=== PATIENT | female | born 1965 | race Caucasian/White ===

== ENCOUNTER 2024-03-02 03:45 | Inpatient (IN) | payer MEDICAID ==
[~2024-03-02] VITALS: Ht 162.6 cm; Wt 75.9 kg
[2024-03-02] VITALS (59 sets, daily range): BP systolic 90–131; BP diastolic 56–96; PULSE 92–135; RESP 18–37; TEMP 37.11408–39.0312; O2SAT 98–100
[~2024-03-02 03:45] MED LIST: ASPI-1160 PO; FAMO-135 PO; LIP40 PO
[2024-03-02] MEDS ORDERED: MIDAZOLAM HCL 100 MG in DEXT 5% WATER 80 ML IV ONE (04:00)
[2024-03-02] MEDS: PIPERACILLIN/TAZO 3.375G/50ML 50 ML IV ONE (04:05)
[2024-03-02] MEDS: PROPOFOL 10MG/ML 100ML 100 ML IV ONE (04:05)
[2024-03-02] MEDS: ONDANSETRON HCL 4MG/2ML INJ IV STA (04:06)
[2024-03-02] MEDS: MORPHINE SULFATE 4 MG/ML INJ (FOR IV/IM USE) IV STA (04:06)
[2024-03-02 04:08] LABS: BG BASE EXCESS -9.4 mmol/L (-2.0-3.0); BG DEOXYHEMOGLOBIN 11.4 % (0.0-5.0); BG FRACTION INSPIRED OXYGEN 100; BG HCO3 ACT 22.1 mmol/L (21.0-28.0); BG METHEMOGLOBIN 0.5 % (0.5-1.5); BG OXYGEN SATURATION 88.5 % (94.0-98.0); BG OXYHEMOGLOBIN 88.1 % (94.0-98.0); BG PCO2 75.6 mmHg (32.0-45.0); BG PH 7.083 (7.350-7.450); BG PO2 76.8 mmHg (83.0-108.0); BG SAMPLE SITE RIGHT RADIAL; BG TOTAL HEMOGLOBIN 14.5 g/dL (12.0-16.0); BG VENT MODE VENT - AC
[2024-03-02] MEDS: SODIUM CHLORIDE 0.9% 1000ML BAG (SEPSIS BOLUS) IV ONE (04:10)
[2024-03-02 04:12] LABS: BASOPHILS % 0.3 % (0.0-2.0); DIFFERENTIAL COMMENT 0; EOSINOPHILS % 1.9 % (0.0-5.0); HEMATOCRIT. 39.9 % (36.0-48.0); HEMOGLOBIN. 13.2 g/dL (12.0-16.0); LYMPHOCYTES % 55.9 % (20.0-50.0); MEAN CORPUSCULAR HEMOGLOBIN 30.8 pg (28.0-32.0); MEAN CORPUSCULAR HGB CONC 33.1 g/dL (31.0-37.0); MEAN CORPUSCULAR VOLUME 93.2 fL (81.0-99.0); MEAN PLATELET VOLUME 6.5 fl (7.4-10.4); MONOCYTES % 9.4 % (2.0-8.0); NEUTROPHILS % 32.5 % (40.0-76.0); PLATELET 438 x1000/uL (130-400); RED BLOOD CELL COUNT 4.28 mill/uL (4.2-5.4); RED CELL DISTRIBUTION WIDTH 15.6 % (11.6-14.6); WHITE BLOOD COUNT 20.8 x1000/uL (4.5-11.0)
[2024-03-02] MEDS: ETOMIDATE 2MG/ML 10ML VIAL IV ONE (04:14)
[2024-03-02] MEDS: VECURONIUM BROMIDE 10 MG/VIAL IV ONE (04:14)
[2024-03-02 04:25] LABS: CHLORIDE 106 mEq/L (98-107); POTASSIUM 3.5 mEq/L (3.5-5.1); SODIUM 139 mEq/L (136-145)
[2024-03-02 04:26] LABS: CALCIUM 9.4 mg/dL (8.7-10.4); CARBON DIOXIDE 22 mEq/L (21-32)
[2024-03-02 04:31] LABS: CREATININE 0.9 mg/dL (0.6-1.0); GLUCOSE 270 mg/dL (70-105); UREA NITROGEN BLOOD 10 mg/dL (9-23)
[2024-03-02 04:33] LABS: ALANINE AMINOTRANSFERASE 45 IU/L (10-49); ALBUMIN 4.4 g/dL (3.2-4.8); ASPARTATE AMINOTRANSFERASE 46 IU/L (<34); BILIRUBIN DIRECT 0.3 mg/dL (<=3.0); BILIRUBIN TOTAL 0.9 mg/dL (0.1-1.0); PROTEIN TOTAL 8.3 g/dL (6.0-8.3); TROPONIN I HIGH SENSITIVITY 11 ng/L (3.0-34)
[2024-03-02 04:35] LABS: PROTHROMBIN TIME 10.9 sec (9.6-11.0)
[2024-03-02] MEDS: VANCOMYCIN 1G PREMIX 200 ML IV ONE (05:17)
[2024-03-02 05:24] LABS: LACTIC ACID 6.8 mmol/L (0.4-2.0)
[2024-03-02] MEDS ORDERED: DOCUSATE SODIUM 100MG CAPSULE PO PRN (05:45)
[2024-03-02] MEDS ORDERED: HYDROCODONE/ACETAMINOPHEN 5/325MG TABLET PO PRN (05:45)
[2024-03-02] MEDS ORDERED: MORPHINE SULFATE 2 MG/ML INJ (NOT FOR IM USE) IV PRN (05:45)
[2024-03-02] MEDS ORDERED: ONDANSETRON HCL 4MG/2ML INJ IV PRN (05:45)
[2024-03-02] MEDS ORDERED: MAGNESIUM/ALUMINUM HYDROXIDE/SIMETHICONE 30ML UDC PO PRN (05:45)
[2024-03-02] MEDS ORDERED: NA PHOS,M-B/NA PHOS,DI-BA ENEMA 118ML PR PRN (05:45)
[2024-03-02] MEDS: MIDAZOLAM 100MG/100ML PREMIX IV PRN (06:14)
[2024-03-02] MEDS ORDERED: DEXTROSE 50% WATER 50ML SYRINGE IV PRN (06:15)
[2024-03-02] MEDS: METOPROLOL TARTRATE 50MG TABLET PO SCH (06:15)
[2024-03-02] MEDS: SODIUM CHLORIDE 0.9% 1,000 ML IV SCH (06:35)
[2024-03-02] MEDS: SODIUM BICARBONATE 8.4% 50MEQ/50ML SYR IV NR (06:41)
[2024-03-02 06:55] LABS: TROPONIN I HIGH SENSITIVITY 124 ng/L (3.0-34)
[2024-03-02 07:33] LABS: CREATINE KINASE 80 IU/L (34-145); PHOSPHORUS 4.1 mg/dL (2.5-4.9)
[2024-03-02 07:36] LABS: T4 FREE 1.14 ng/dL (0.89-1.76); THYROID STIMULATING HORMONE 7.23 uIU/mL (0.55-4.78)
[2024-03-02 07:56] LABS: TROPONIN I HIGH SENSITIVITY 184 ng/L (3.0-34)
[2024-03-02] MEDS ORDERED: ETOMIDATE 2MG/ML 10ML VIAL IV ONE (08:00)
[2024-03-02] MEDS: INSULIN LISPRO 100 UNITS/ML SUBCUT SCH (08:20)
[2024-03-02] MEDS: PIPERACILLIN/TAZO 3.375G/50ML 50 ML IV SCH (09:24)
[2024-03-02] MEDS: ENOXAPARIN 40MG/0.4ML SYR SUBCUT SCH (09:24)
[2024-03-02] MEDS: BLOOD SUGAR DIAGNOSTIC STRIP TEST SCH (09:25)
[2024-03-02 10:57] LABS: CLARITY URINE CLEAR (CLEAR); COLOR URINE YELLOW (YELLOW); GLUCOSE URINE 2+ (NEGATIVE); KETONES URINE NEGATIVE (NEGATIVE); LEUKOCYTE ESTERASE URINE NEGATIVE (NEGATIVE); NITRITE URINE NEGATIVE (NEGATIVE); OCCULT BLOOD URINE 1+ (NEGATIVE); PROTEIN URINE TRACE (NEGATIVE); SPECIFIC GRAVITY URINE 1.013 (1.005-1.030); UROBILINOGEN URINE 0.2 E.U./dL (0.2-1.0)
[2024-03-02] MEDS: AZITHROMYCIN 500MG/250ML 250 ML IV SCH (12:52)
[2024-03-02 13:07] LABS: HYALINE CASTS URINE 0-5 /lpf; SQUAMOUS EPITHELIAL CELL URINE RARE /lpf (RARE/1+)
[2024-03-02 13:09] LABS: BACTERIA URINE TRACE; WBC URINE NONE SEEN /hpf (0-2)
[2024-03-02 15:11] LABS: *AMPHETAMINES SCREEN URINE NEGATIVE (NEGATIVE)
[2024-03-02 15:12] LABS: *BARBITURATES SCREEN URINE NEGATIVE (NEGATIVE); *BENZODIAZEPINES SCREEN URINE PRESUMPTIVE POSITIVE (NEGATIVE); *COCAINE SCREEN URINE NEGATIVE (NEGATIVE); CANNABINOID URINE SCREEN NEGATIVE (NEGATIVE); ECSTASY MDMA SCREEN URINE NEGATIVE (NEGATIVE); METHADONE URINE SCREEN NEGATIVE (NEGATIVE); OPIATES URINE SCREEN PRESUMPTIVE POSITIVE (NEGATIVE); PHENCYCLIDINE URINE SCREEN NEGATIVE (NEGATIVE)
[2024-03-02 15:46] LABS: BG BASE EXCESS 2.1 mmol/L (-2.0-3.0); BG CARBOXYHEMOGLOBIN 0.3 % (0.5-1.5); BG DEOXYHEMOGLOBIN 0.9 % (0.0-5.0); BG FRACTION INSPIRED OXYGEN 100; BG HCO3 ACT 24.9 mmol/L (21.0-28.0); BG METHEMOGLOBIN 0.3 % (0.5-1.5); BG OXYGEN SATURATION 99.1 % (94.0-98.0); BG OXYHEMOGLOBIN 98.5 % (94.0-98.0); BG PH 7.495 (7.350-7.450); BG PO2 145.4 mmHg (83.0-108.0); BG SAMPLE SITE RIGHT RADIAL; BG TOTAL HEMOGLOBIN 12.4 g/dL (12.0-16.0); BG VENT MODE VENT - AC
[2024-03-02] MEDS: PROPOFOL 10MG/ML 100ML 100 ML IV PRN (16:16)
[2024-03-02 16:31] LABS: CREATINE KINASE 245 IU/L (34-145)
[2024-03-02 16:33] LABS: TROPONIN I HIGH SENSITIVITY 602 ng/L (3.0-34)
[2024-03-02] MEDS ORDERED: VANCOMYCIN 750MG/150ML (BAXTER) IV SCH (17:00)
[2024-03-02] MEDS: VANCOMYCIN 1.25GM PMX (XELLIA) 250 ML IV SCH (18:40)
[2024-03-02] MEDS: MIDAZOLAM 100MG/100ML PMX 100 ML IV PRN (20:54)
[2024-03-03] VITALS (102 sets, daily range): BP systolic 98–164; BP diastolic 61–88; PULSE 77–114; RESP 20–26; TEMP 36.33624–38.83644; O2SAT 98–100
[2024-03-03 06:12] LABS: CHLORIDE 108 mEq/L (98-107); POTASSIUM 3.3 mEq/L (3.5-5.1); SODIUM 143 mEq/L (136-145)
[2024-03-03 06:15] LABS: BASOPHILS % 0.3 % (0.0-2.0); CALCIUM 8.8 mg/dL (8.7-10.4); CARBON DIOXIDE 27 mEq/L (21-32); EOSINOPHILS % 0.8 % (0.0-5.0); HEMATOCRIT. 34.9 % (36.0-48.0); HEMOGLOBIN. 11.4 g/dL (12.0-16.0); LYMPHOCYTES % 22.4 % (20.0-50.0); MEAN CORPUSCULAR HEMOGLOBIN 29.5 pg (28.0-32.0); MEAN CORPUSCULAR HGB CONC 32.8 g/dL (31.0-37.0); MEAN CORPUSCULAR VOLUME 90.2 fL (81.0-99.0); MEAN PLATELET VOLUME 6.6 fl (7.4-10.4); MONOCYTES % 10.9 % (2.0-8.0); NEUTROPHILS % 65.6 % (40.0-76.0); PLATELET 293 x1000/uL (130-400); RED BLOOD CELL COUNT 3.87 mill/uL (4.2-5.4); RED CELL DISTRIBUTION WIDTH 15.1 % (11.6-14.6); WHITE BLOOD COUNT 13.3 x1000/uL (4.5-11.0)
[2024-03-03 06:20] LABS: GLUCOSE 97 mg/dL (70-105)
[2024-03-03 06:21] LABS: ALANINE AMINOTRANSFERASE 43 IU/L (10-49)
[2024-03-03 06:22] LABS: ALBUMIN 3.4 g/dL (3.2-4.8); ASPARTATE AMINOTRANSFERASE 31 IU/L (<34); PHOSPHORUS 2.9 mg/dL (2.5-4.9)
[2024-03-03 06:23] LABS: BILIRUBIN TOTAL 1.4 mg/dL (0.1-1.0); PROTEIN TOTAL 6.3 g/dL (6.0-8.3)
[2024-03-03 06:49] LABS: CREATININE 0.5 mg/dL (0.6-1.0); UREA NITROGEN BLOOD < 5 mg/dL (9-23)
[2024-03-03 09:14] LABS: TROPONIN I HIGH SENSITIVITY 413 ng/L (3.0-34)
[2024-03-03] MEDS: KCL 20MEQ/100ML PREMIX 100 ML IV SCH (20:15)
[2024-03-03] MEDS: ACETAMINOPHEN 325MG TABLET PO PRN (20:17)
[2024-03-03] MEDS: PROPOFOL 10MG/ML 100ML 100 ML IV PRN (23:49)
[2024-03-04] VITALS (85 sets, daily range): BP systolic 112–171; BP diastolic 61–117; PULSE 69–93; RESP 7–36; TEMP 36.83628–37.94748; O2SAT 98–100
[2024-03-04 03:44] LABS: BASOPHILS % 0.2 % (0.0-2.0); EOSINOPHILS % 3.1 % (0.0-5.0); HEMATOCRIT. 28.8 % (36.0-48.0); HEMOGLOBIN. 9.6 g/dL (12.0-16.0); LYMPHOCYTES % 19.9 % (20.0-50.0); MEAN CORPUSCULAR HEMOGLOBIN 29.6 pg (28.0-32.0); MEAN CORPUSCULAR HGB CONC 33.3 g/dL (31.0-37.0); MEAN CORPUSCULAR VOLUME 89.1 fL (81.0-99.0); MEAN PLATELET VOLUME 6.5 fl (7.4-10.4); MONOCYTES % 9.2 % (2.0-8.0); NEUTROPHILS % 67.6 % (40.0-76.0); PLATELET 269 x1000/uL (130-400); RED BLOOD CELL COUNT 3.23 mill/uL (4.2-5.4); RED CELL DISTRIBUTION WIDTH 15.1 % (11.6-14.6); WHITE BLOOD COUNT 8.3 x1000/uL (4.5-11.0)
[2024-03-04 03:51] LABS: CHLORIDE 113 mEq/L (98-107); POTASSIUM 3.2 mEq/L (3.5-5.1); SODIUM 143 mEq/L (136-145)
[2024-03-04 03:52] LABS: CARBON DIOXIDE 23 mEq/L (21-32)
[2024-03-04 03:53] LABS: CALCIUM 8.5 mg/dL (8.7-10.4)
[2024-03-04 03:57] LABS: CREATININE 0.5 mg/dL (0.6-1.0); GLUCOSE 95 mg/dL (70-105); TRIGLYCERIDE 100 mg/dL (0-150)
[2024-03-04 04:16] LABS: UREA NITROGEN BLOOD < 5 mg/dL (9-23)
[2024-03-04] MEDS ORDERED: NALOXONE HCL 0.4MG/ML VIAL IV PRN (09:00)
[2024-03-04] MEDS: KCL 20MEQ/100ML PREMIX 100 ML IV SCH (10:38)
[2024-03-04] MEDS: DEXMEDETOMIDINE 400 MCG/100 ML 100 ML IV PRN (11:50)
[2024-03-04 11:52] LABS: BG BASE EXCESS -2.8 mmol/L (-2.0-3.0); BG CARBOXYHEMOGLOBIN 0.3 % (0.5-1.5); BG DEOXYHEMOGLOBIN 1.4 % (0.0-5.0); BG FRACTION INSPIRED OXYGEN 40; BG HCO3 ACT 20.8 mmol/L (21.0-28.0); BG METHEMOGLOBIN 0.3 % (0.5-1.5); BG OXYGEN SATURATION 98.6 % (94.0-98.0); BG PCO2 31.7 mmHg (32.0-45.0); BG PH 7.435 (7.350-7.450); BG PO2 124.3 mmHg (83.0-108.0); BG SAMPLE SITE RIGHT RADIAL; BG TOTAL HEMOGLOBIN 9.8 g/dL (12.0-16.0); BG VENT MODE VENT - AC
[2024-03-04 17:13] LABS: BG CARBOXYHEMOGLOBIN 0.3 % (0.5-1.5); BG DEOXYHEMOGLOBIN 2.2 % (0.0-5.0); BG FRACTION INSPIRED OXYGEN 35; BG HCO3 ACT 20.6 mmol/L (21.0-28.0); BG METHEMOGLOBIN 0.3 % (0.5-1.5); BG OXYGEN SATURATION 97.8 % (94.0-98.0); BG OXYHEMOGLOBIN 97.2 % (94.0-98.0); BG PCO2 31.8 mmHg (32.0-45.0); BG PH 7.429 (7.350-7.450); BG PO2 102.3 mmHg (83.0-108.0); BG SAMPLE SITE RIGHT BRACHIAL; BG TOTAL HEMOGLOBIN 10.8 g/dL (12.0-16.0); BG VENT MODE VENT - CPAP
[2024-03-04] MEDS: ATORVASTATIN CALCIUM 40MG TABLET PO SCH (21:10)
[2024-03-05] VITALS (54 sets, daily range): BP systolic 65–190; BP diastolic 52–139; PULSE 78–118; RESP 12–27; TEMP 36.44736–37.72524; O2SAT 94–100
[2024-03-05] MEDS: CLONIDINE 0.1MG TABLET PO PRN (02:21)
[2024-03-05] MEDS: GUAIFENESIN 200MG/10ML SUGAR FREE UDC PO PRN (04:40)
[2024-03-05 05:52] LABS: HEMATOCRIT 28.8 % (36.0-48.0); MEAN CORPUSCULAR HEMOGLOBIN 30.5 pg (28.0-32.0); MEAN CORPUSCULAR HGB CONC 34.7 g/dL (31.0-37.0); PLATELET 315 x1000/uL (130-400); RED BLOOD CELL COUNT 3.27 mill/uL (4.2-5.4); RED CELL DISTRIBUTION WIDTH 14.7 % (11.6-14.6); WHITE BLOOD COUNT 8.6 x1000/uL (4.5-11.0)
[2024-03-05 05:59] LABS: CHLORIDE 111 mEq/L (98-107); POTASSIUM 2.9 mEq/L (3.5-5.1); SODIUM 143 mEq/L (136-145)
[2024-03-05 06:00] LABS: CARBON DIOXIDE 23 mEq/L (21-32)
[2024-03-05 06:01] LABS: CALCIUM 9.1 mg/dL (8.7-10.4)
[2024-03-05 06:05] LABS: CREATININE 0.4 mg/dL (0.6-1.0); GLUCOSE 82 mg/dL (70-105)
[2024-03-05 06:41] LABS: PHOSPHORUS 2.8 mg/dL (2.5-4.9)
[2024-03-05 06:51] LABS: UREA NITROGEN BLOOD < 5 mg/dL (9-23)
[2024-03-05] MEDS: ASPIRIN 81MG TABLET PO SCH (08:16)
[2024-03-05] MEDS: MAGNESIUM 2 G PREMIX 50 ML IV NR (09:01)
[2024-03-05] MEDS: POTASSIUM CHLORIDE 20MEQ/PACKET PO NR (09:02)
[2024-03-05] MEDS: SODIUM CHLORIDE 0.9% 1,000 ML IV SCH (09:45)
[2024-03-05] MEDS: KCL 20MEQ/100ML PREMIX 100 ML IV SCH (11:37)
[2024-03-06] VITALS (35 sets, daily range): BP systolic 87–185; BP diastolic 53–140; PULSE 71–96; RESP 0–28; TEMP 36.3918–37.33632; O2SAT 91–100
[2024-03-06 06:05] LABS: HEMATOCRIT. 30.3 % (36.0-48.0); HEMOGLOBIN. 10.4 g/dL (12.0-16.0); MEAN CORPUSCULAR HEMOGLOBIN 30.7 pg (28.0-32.0); MEAN CORPUSCULAR HGB CONC 34.3 g/dL (31.0-37.0); MEAN CORPUSCULAR VOLUME 89.5 fL (81.0-99.0); RED BLOOD CELL COUNT 3.38 mill/uL (4.2-5.4); RED CELL DISTRIBUTION WIDTH 14.7 % (11.6-14.6)
[2024-03-06 06:26] LABS: PHOSPHORUS 2.9 mg/dL (2.5-4.9)
[2024-03-06 06:55] LABS: DIFFERENTIAL COMMENT 1
[2024-03-06 09:39] LABS: PLATELET ESTIMATE MARKEDLY INCREASED
[2024-03-06] MEDS ORDERED: CEFEPIME 2GM IN DEXT 5% 100ML IV SCH (16:30)
[2024-03-06] MEDS: PIPERACILLIN/TAZO 3.375G/50ML 50 ML IV SCH (17:08)
[2024-03-06] MEDS ORDERED: CEFEPIME 2GM/100ML 100 ML IV SCH (18:00)
[2024-03-06 18:15] LABS: CALCIUM 9.1 mg/dL (8.7-10.4); CARBON DIOXIDE 25 mEq/L (21-32); CHLORIDE 108 mEq/L (98-107); POTASSIUM 3.4 mEq/L (3.5-5.1); SODIUM 140 mEq/L (136-145)
[2024-03-06 18:20] LABS: CREATININE 0.5 mg/dL (0.6-1.0); GLUCOSE 126 mg/dL (70-105); UREA NITROGEN BLOOD 7 mg/dL (9-23)
[2024-03-06 18:22] LABS: PHOSPHORUS 2.6 mg/dL (2.5-4.9)
[2024-03-07] VITALS: BP 142/78; PULSE 90; RESP 17; TEMP 36.6696; O2SAT 99
[2024-03-07 04:00] VITALS: BP 137/76; PULSE 86; RESP 18; TEMP 37.16964; O2SAT 95
[2024-03-07 08:00] VITALS: BP 130/73; PULSE 81; RESP 19; TEMP 37.39188; O2SAT 98
[2024-03-07] MEDS: BUDESONIDE 0.5MG/2ML NEB HHN SCH ×2 (11:47→20:44)
[2024-03-07 12:19] VITALS: BP 127/61; PULSE 76; RESP 18; TEMP 36.55848
[2024-03-07 16:00] VITALS: BP 137/77; PULSE 86; RESP 18; TEMP 36.6696; O2SAT 99
[2024-03-07 20:00] VITALS: BP 134/72; PULSE 93; RESP 19; TEMP 36.16956; O2SAT 99
[2024-03-07] MEDS: GUAIFENESIN/DM 600MG/30MG ER TAB 12HR PO PRN (20:45)
[2024-03-07] MEDS: METOPROLOL TARTRATE 25MG TABLET PO SCH (20:45)
[2024-03-08] VITALS (9 sets, daily range): BP systolic 116–144; BP diastolic 56–82; PULSE 70–91; RESP 17–20; TEMP 35.39172–38.11416; O2SAT 95–100
[2024-03-08] MEDS: IPRATROPIUM/ALBUTEROL 0.5-3(2.5)MG/3ML NEB HHN PRN (08:32)
[2024-03-08] MEDS: ACETAMINOPHEN 325MG TABLET PO PRN (21:06)
[2024-03-09] VITALS: BP 129/55; PULSE 80; RESP 20; TEMP 36.72516; O2SAT 100
[2024-03-09 04:00] VITALS: BP 129/55; PULSE 80; RESP 20; TEMP 37.61412; O2SAT 100
[2024-03-09 08:00] VITALS: BP 149/75; PULSE 90; RESP 18; TEMP 36.50292; O2SAT 98
[2024-03-09 09:27] VITALS: PULSE 86; RESP 18; O2SAT 96
[2024-03-09] MEDS: METOPROLOL TARTRATE 25MG TABLET PO NR (10:15)
[2024-03-09] MEDS ORDERED: GUAI-741 PO (16:54)
[2024-03-09 20:45] VITALS: PULSE 81; RESP 16; O2SAT 97
[2024-03-09 21:07] VITALS: BP 142/71; PULSE 97; TEMP 98.1; O2SAT 98
== END 2024-03-09 22:01 | disposition home or self-care (01) | DRG 720 ==
LOC: ER 03:52 → CVICU 04:39 → EDBEDREQSVC 05:38 → 6WST 03-06 16:44 → 7EST 03-08 18:03
PROVIDERS: ADMIT Internal Medicine; ATTEND Internal Medicine
PROC: 5A1945Z Respiratory Ventilation, 24-96 Consecutive Hours (ICD-10-PCS; principal; 2024-03-02)
PROC: 0BH17EZ Insertion of Endotracheal Airway into Trachea, Via Natural or Artificial Opening (ICD-10-PCS; 2024-03-02)
DX: A41.9 Sepsis, unspecified organism (principal); J96.01 Acute respiratory failure with hypoxia; I21.A1 Myocardial infarction type 2; G93.41 Metabolic encephalopathy; J18.9 Pneumonia, unspecified organism; E87.29 Other acidosis; J96.02 Acute respiratory failure with hypercapnia; I10 Essential (primary) hypertension; I16.1 Hypertensive emergency; E03.9 Hypothyroidism, unspecified; R73.9 Hyperglycemia, unspecified; R65.20 Severe sepsis without septic shock; E83.42 Hypomagnesemia; E87.6 Hypokalemia; E04.9 Nontoxic goiter, unspecified; E78.5 Hyperlipidemia, unspecified
CPT/HCPCS: 31500; 36415; 36600; 71045; 71275; 80048; 80053; 80076; 80202; 80305; 81003; 82375; 82550; 82805; 82962; 83605; 83735; 83880; 84100; 84145; 84439; 84443; 84478; 84481; 84484; 85025; 85027; 85379; 87070; 87804; 92610; 93005; 93306; 93970; 94003; 94640; 99291; J0456; J0692; J1650; J2250; J2270; J2405; J2543; J2704; J3370; J3475; J3480; J3490; J7030; J7060; J7626

== ENCOUNTER 2024-03-12 05:18 | Inpatient (IN) | payer MEDICAID ==
[~2024-03-12] VITALS: Ht 320 cm; Wt 73.0 kg
[2024-03-12] VITALS (7 sets, daily range): BP systolic 131; BP diastolic 67; PULSE 84–150; RESP 18–28; TEMP 37.00296; O2SAT 98–99
[~2024-03-12 05:18] MED LIST changes: +GUAI-741 PO
[2024-03-12] MEDS ORDERED: METHYLPREDNISOLONE SOD SUCC 500 MG in DEXT 5% WATER 100 ML IV ONE (05:45)
[2024-03-12] MEDS: HYDRALAZINE 20MG/ML VIAL IV ONE (05:45)
[2024-03-12] MEDS: PROPOFOL 10MG/ML 100ML 100 ML IV SCH (05:47)
[2024-03-12] MEDS: ALBUTEROL (0.083%) 2.5MG/3ML NEB HHN ONE (06:07)
[2024-03-12 06:14] LABS: HEMATOCRIT. 37.2 % (36.0-48.0); MEAN CORPUSCULAR HEMOGLOBIN 29.6 pg (28.0-32.0); MEAN CORPUSCULAR HGB CONC 32.4 g/dL (31.0-37.0); MEAN CORPUSCULAR VOLUME 91.5 fL (81.0-99.0); MEAN PLATELET VOLUME 6.4 fl (7.4-10.4); PLATELET 673 x1000/uL (130-400); RED BLOOD CELL COUNT 4.07 mill/uL (4.2-5.4); RED CELL DISTRIBUTION WIDTH 15.5 % (11.6-14.6); WHITE BLOOD COUNT 14.8 x1000/uL (4.5-11.0)
[2024-03-12] MEDS: SUCCINYLCHOLINE CHLORIDE 200MG/10ML IV ONE (06:19)
[2024-03-12] MEDS: ETOMIDATE 2MG/ML 10ML VIAL IV ONE ×2 (06:19)
[2024-03-12 06:22] LABS: CHLORIDE 104 mEq/L (98-107); POTASSIUM 4.2 mEq/L (3.5-5.1); SODIUM 139 mEq/L (136-145)
[2024-03-12 06:23] LABS: CALCIUM 9.4 mg/dL (8.7-10.4); CARBON DIOXIDE 24 mEq/L (21-32)
[2024-03-12 06:25] LABS: BG BASE EXCESS -3.9 mmol/L (-2.0-3.0); BG CARBOXYHEMOGLOBIN 0.1 % (0.5-1.5); BG DEOXYHEMOGLOBIN 0.4 % (0.0-5.0); BG FRACTION INSPIRED OXYGEN 100; BG HCO3 ACT 21.4 mmol/L (21.0-28.0); BG METHEMOGLOBIN 0.1 % (0.5-1.5); BG OXYGEN SATURATION 99.6 % (94.0-98.0); BG OXYHEMOGLOBIN 99.4 % (94.0-98.0); BG PCO2 39.9 mmHg (32.0-45.0); BG PH 7.347 (7.350-7.450); BG PO2 348.2 mmHg (83.0-108.0); BG SAMPLE SITE RIGHT RADIAL; BG TOTAL HEMOGLOBIN 12.5 g/dL (12.0-16.0); BG VENT MODE VENT - AC
[2024-03-12 06:28] LABS: CREATININE 0.9 mg/dL (0.6-1.0); GLUCOSE 297 mg/dL (70-105); UREA NITROGEN BLOOD 10 mg/dL (9-23)
[2024-03-12 06:29] LABS: TROPONIN I HIGH SENSITIVITY 16 ng/L (3.0-34)
[2024-03-12 06:30] LABS: ALANINE AMINOTRANSFERASE 18 IU/L (10-49); ALBUMIN 4.2 g/dL (3.2-4.8); ASPARTATE AMINOTRANSFERASE 22 IU/L (<34); BILIRUBIN TOTAL 0.5 mg/dL (0.1-1.0)
[2024-03-12 06:31] LABS: PROTEIN TOTAL 8.1 g/dL (6.0-8.3)
[2024-03-12 06:32] LABS: DIFFERENTIAL COMMENT 1
[2024-03-12 07:36] LABS: ANISOCYTOSIS 1+; PLATELET ESTIMATE INCREASED
[2024-03-12] MEDS: METHYLPREDNISOLONE SOD SUCC 500 MG in DEXT 5% WATER 100 ML IV NR (08:26)
[2024-03-12] MEDS ORDERED: SODIUM CHLORIDE 0.9% 1000ML BAG (SEPSIS BOLUS) IV ONE (08:30)
[2024-03-12] MEDS: SODIUM CHLORIDE 0.9% 2,100 ML IV SCH (08:47)
[2024-03-12] MEDS: LEVOFLOXACIN 750MG PREMIX 150 ML IV NR (08:54)
[2024-03-12 09:08] LABS: LACTIC ACID 2.2 mmol/L (0.4-2.0)
[2024-03-12] MEDS ORDERED: ONDANSETRON HCL 4MG/2ML INJ IV PRN (14:15)
[2024-03-12] MEDS ORDERED: DIPHENHYDRAMINE 50MG/ML VIAL IV PRN (14:15)
[2024-03-12] MEDS ORDERED: DEXTROSE 50% WATER 50ML SYRINGE IV PRN (14:15)
[2024-03-12] MEDS: CEFTRIAXONE 1GM/50ML 50 ML IV SCH (14:48)
[2024-03-12] MEDS: AZITHROMYCIN 500MG/250ML 250 ML IV SCH (15:16)
[2024-03-12] MEDS: IPRATROPIUM/ALBUTEROL 0.5-3(2.5)MG/3ML NEB HHN SCH (16:11)
[2024-03-12] MEDS: BLOOD SUGAR DIAGNOSTIC STRIP TEST SCH (16:45)
[2024-03-12] MEDS: INSULIN LISPRO 100 UNITS/ML SUBCUT SCH (18:04)
[2024-03-12] MEDS: ACETYLCYSTEINE 200MG/ML 20% VIAL 4ML INH SCH (21:23)
[2024-03-12] MEDS: ACETAMINOPHEN 325MG TABLET PO PRN (21:34)
[2024-03-12] MEDS: METHYLPREDNISOLONE SOD SUCC 40MG/ML (ACT-O-VIAL) IV SCH (21:34)
[2024-03-13] VITALS (9 sets, daily range): BP systolic 109–131; BP diastolic 54–80; PULSE 77–113; RESP 16–20; TEMP 36.22512–37.0296; O2SAT 96–100
[2024-03-13 07:06] LABS: CARBON DIOXIDE 24 mEq/L (21-32); CHLORIDE 109 mEq/L (98-107); POTASSIUM 3.5 mEq/L (3.5-5.1); SODIUM 141 mEq/L (136-145)
[2024-03-13 07:07] LABS: CALCIUM 10.1 mg/dL (8.7-10.4)
[2024-03-13 07:12] LABS: GLUCOSE 167 mg/dL (70-105); HEMATOCRIT. 30.5 % (36.0-48.0); HEMOGLOBIN. 10.6 g/dL (12.0-16.0); LYMPHOCYTES % 8.4 % (20.0-50.0); MEAN CORPUSCULAR HEMOGLOBIN 30.7 pg (28.0-32.0); MEAN CORPUSCULAR HGB CONC 34.8 g/dL (31.0-37.0); MEAN CORPUSCULAR VOLUME 88.3 fL (81.0-99.0); MEAN PLATELET VOLUME 6.4 fl (7.4-10.4); MONOCYTES % 4.1 % (2.0-8.0); NEUTROPHILS % 87.5 % (40.0-76.0); PLATELET 463 x1000/uL (130-400); RED BLOOD CELL COUNT 3.46 mill/uL (4.2-5.4); RED CELL DISTRIBUTION WIDTH 15.4 % (11.6-14.6); UREA NITROGEN BLOOD 13 mg/dL (9-23)
[2024-03-13 07:36] LABS: CREATININE 0.5 mg/dL (0.6-1.0)
[2024-03-14] VITALS (10 sets, daily range): BP systolic 105–123; BP diastolic 50–65; PULSE 84–120; RESP 18–20; TEMP 36.50292–36.61404; O2SAT 97–99
[2024-03-14 06:37] LABS: T4 FREE 1.16 ng/dL (0.89-1.76)
[2024-03-14] MEDS: IPRATROPIUM/ALBUTEROL 0.5-3(2.5)MG/3ML NEB HHN PRN (09:42)
[2024-03-15] VITALS (10 sets, daily range): BP systolic 102–129; BP diastolic 48–70; PULSE 70–99; RESP 17–22; TEMP 36.44736–36.89184; O2SAT 97–100
[2024-03-15 07:19] LABS: CARBON DIOXIDE 25 mEq/L (21-32); CHLORIDE 108 mEq/L (98-107); SODIUM 142 mEq/L (136-145)
[2024-03-15 07:21] LABS: CALCIUM 9.7 mg/dL (8.7-10.4)
[2024-03-15 07:25] LABS: CREATININE 0.5 mg/dL (0.6-1.0); GLUCOSE 158 mg/dL (70-105); UREA NITROGEN BLOOD 18 mg/dL (9-23)
[2024-03-15 07:53] LABS: HEMATOCRIT. 28.5 % (36.0-48.0); HEMOGLOBIN. 9.4 g/dL (12.0-16.0); MEAN CORPUSCULAR HEMOGLOBIN 29.4 pg (28.0-32.0); MEAN CORPUSCULAR HGB CONC 33.1 g/dL (31.0-37.0); MEAN CORPUSCULAR VOLUME 88.8 fL (81.0-99.0); MEAN PLATELET VOLUME 6.6 fl (7.4-10.4); PLATELET 463 x1000/uL (130-400); RED BLOOD CELL COUNT 3.21 mill/uL (4.2-5.4); RED CELL DISTRIBUTION WIDTH 15.7 % (11.6-14.6); WHITE BLOOD COUNT 18.8 x1000/uL (4.5-11.0)
[2024-03-15 08:52] LABS: DIFFERENTIAL COMMENT 1
[2024-03-15 23:39] LABS: PLATELET ESTIMATE INCREASED
[2024-03-16] VITALS (60 sets, daily range): BP systolic 112–200; BP diastolic 45–110; PULSE 70–146; RESP 12–27; TEMP 36.50292–37.2252; O2SAT 95–100
[2024-03-16 05:41] LABS: CHLORIDE 108 mEq/L (98-107); POTASSIUM 3.3 mEq/L (3.5-5.1); SODIUM 143 mEq/L (136-145)
[2024-03-16 05:42] LABS: CARBON DIOXIDE 26 mEq/L (21-32)
[2024-03-16 05:43] LABS: CALCIUM 9.5 mg/dL (8.7-10.4)
[2024-03-16 05:47] LABS: CREATININE 0.5 mg/dL (0.6-1.0); GLUCOSE 131 mg/dL (70-105)
[2024-03-16 05:48] LABS: UREA NITROGEN BLOOD 13 mg/dL (9-23)
[2024-03-16] MEDS: METOPROLOL TARTRATE 5MG/5ML VIAL IV NR (06:23)
[2024-03-16] MEDS: PROPOFOL 10MG/ML 100ML 100 ML IV PRN (06:23)
[2024-03-16 07:02] LABS: BASOPHILS % 0.1 % (0.0-2.0); HEMATOCRIT. 29.5 % (36.0-48.0); HEMOGLOBIN. 9.8 g/dL (12.0-16.0); LYMPHOCYTES % 14.5 % (20.0-50.0); MEAN CORPUSCULAR HEMOGLOBIN 29.9 pg (28.0-32.0); MEAN CORPUSCULAR HGB CONC 33.3 g/dL (31.0-37.0); MEAN CORPUSCULAR VOLUME 89.6 fL (81.0-99.0); MEAN PLATELET VOLUME 6.8 fl (7.4-10.4); MONOCYTES % 9.5 % (2.0-8.0); NEUTROPHILS % 75.9 % (40.0-76.0); PLATELET 453 x1000/uL (130-400); RED BLOOD CELL COUNT 3.29 mill/uL (4.2-5.4); RED CELL DISTRIBUTION WIDTH 15.9 % (11.6-14.6); WHITE BLOOD COUNT 16.7 x1000/uL (4.5-11.0)
[2024-03-16 09:31] LABS: BG BASE EXCESS 2.9 mmol/L (-2.0-3.0); BG CARBOXYHEMOGLOBIN 0.3 % (0.5-1.5); BG DEOXYHEMOGLOBIN 0.1 % (0.0-5.0); BG FRACTION INSPIRED OXYGEN 100; BG HCO3 ACT 26.8 mmol/L (21.0-28.0); BG OXYGEN SATURATION 99.9 % (94.0-98.0); BG OXYHEMOGLOBIN 99.6 % (94.0-98.0); BG PCO2 38.3 mmHg (32.0-45.0); BG PH 7.462 (7.350-7.450); BG PO2 330.5 mmHg (83.0-108.0); BG SAMPLE SITE RIGHT RADIAL; BG TOTAL HEMOGLOBIN 11.6 g/dL (12.0-16.0); BG VENT MODE VENT - AC
[2024-03-16] MEDS: BLOOD SUGAR DIAGNOSTIC STRIP TEST SCH (12:12)
[2024-03-16] MEDS: POTASSIUM CHLORIDE 20MEQ/PACKET PO SCH (12:22)
[2024-03-16] MEDS: INSULIN LISPRO 100 UNITS/ML SUBCUT SCH (12:22)
[2024-03-17] VITALS (67 sets, daily range): BP systolic 101–165; BP diastolic 63–139; PULSE 56–103; RESP 5–21; TEMP 36.83628–37.28076; O2SAT 94–100
[2024-03-17 06:42] LABS: CHLORIDE 108 mEq/L (98-107); POTASSIUM 3.8 mEq/L (3.5-5.1); SODIUM 142 mEq/L (136-145)
[2024-03-17 06:43] LABS: CALCIUM 9.4 mg/dL (8.7-10.4); CARBON DIOXIDE 28 mEq/L (21-32)
[2024-03-17 06:44] LABS: HEMATOCRIT. 30.7 % (36.0-48.0); HEMOGLOBIN. 10.3 g/dL (12.0-16.0); LYMPHOCYTES % 9.3 % (20.0-50.0); MEAN CORPUSCULAR HGB CONC 33.5 g/dL (31.0-37.0); MEAN CORPUSCULAR VOLUME 89.4 fL (81.0-99.0); MEAN PLATELET VOLUME 6.8 fl (7.4-10.4); MONOCYTES % 7.5 % (2.0-8.0); NEUTROPHILS % 83.2 % (40.0-76.0); PLATELET 447 x1000/uL (130-400); RED BLOOD CELL COUNT 3.44 mill/uL (4.2-5.4); WHITE BLOOD COUNT 14.3 x1000/uL (4.5-11.0)
[2024-03-17 06:48] LABS: CREATININE 0.5 mg/dL (0.6-1.0); GLUCOSE 135 mg/dL (70-105); TRIGLYCERIDE 88 mg/dL (0-150); UREA NITROGEN BLOOD 20 mg/dL (9-23)
[2024-03-17] MEDS: PANTOPRAZOLE SODIUM 40 MG/VIAL IV SCH (08:34)
[2024-03-17] MEDS ORDERED: PANTOPRAZOLE SODIUM 40 MG/VIAL IV SCH (09:00)
[2024-03-17] MEDS: LEVOTHYROXINE SODIUM 25MCG TABLET PO SCH (13:58)
[2024-03-18] VITALS (91 sets, daily range): BP systolic 96–160; BP diastolic 55–105; PULSE 59–105; RESP 11–21; TEMP 36.61404–37.33632; O2SAT 96–100
[2024-03-18] MEDS: PROPOFOL 10MG/ML 100ML 100 ML IV PRN (00:05)
[2024-03-18 05:32] LABS: BASOPHILS % 0.2 % (0.0-2.0); DIFFERENTIAL COMMENT 0; HEMATOCRIT. 32.3 % (36.0-48.0); HEMOGLOBIN. 10.7 g/dL (12.0-16.0); LYMPHOCYTES % 8.1 % (20.0-50.0); MEAN CORPUSCULAR HEMOGLOBIN 29.8 pg (28.0-32.0); MEAN CORPUSCULAR HGB CONC 33.1 g/dL (31.0-37.0); MEAN CORPUSCULAR VOLUME 90.1 fL (81.0-99.0); MEAN PLATELET VOLUME 6.8 fl (7.4-10.4); MONOCYTES % 7.6 % (2.0-8.0); NEUTROPHILS % 84.1 % (40.0-76.0); PLATELET 449 x1000/uL (130-400); RED BLOOD CELL COUNT 3.58 mill/uL (4.2-5.4); WHITE BLOOD COUNT 14.4 x1000/uL (4.5-11.0)
[2024-03-18 05:47] LABS: CHLORIDE 106 mEq/L (98-107); POTASSIUM 3.5 mEq/L (3.5-5.1); SODIUM 141 mEq/L (136-145)
[2024-03-18 05:48] LABS: CALCIUM 9.4 mg/dL (8.7-10.4); CARBON DIOXIDE 26 mEq/L (21-32)
[2024-03-18 05:53] LABS: CREATININE 0.6 mg/dL (0.6-1.0); GLUCOSE 188 mg/dL (70-105); TRIGLYCERIDE 102 mg/dL (0-150); UREA NITROGEN BLOOD 28 mg/dL (9-23)
[2024-03-18] MEDS ORDERED: PROPOFOL 10MG/ML 100ML 100 ML IV PRN (13:15)
[2024-03-18] MEDS: FENTANYL 2500MCG/250ML PMX 250 ML IV PRN (19:23)
[2024-03-19] VITALS (76 sets, daily range): BP systolic 126–172; BP diastolic 69–126; PULSE 71–125; RESP 12–23; TEMP 36.55848–37.33632; O2SAT 96–100
[2024-03-19] MEDS: METHYLPREDNISOLONE SOD SUCC 40MG/ML (ACT-O-VIAL) IV SCH (00:15)
[2024-03-19 07:00] LABS: BASOPHILS % 0.2 % (0.0-2.0); DIFFERENTIAL COMMENT 0; HEMATOCRIT. 33.5 % (36.0-48.0); HEMOGLOBIN. 11.1 g/dL (12.0-16.0); LYMPHOCYTES % 7.4 % (20.0-50.0); MEAN CORPUSCULAR HEMOGLOBIN 29.8 pg (28.0-32.0); MEAN CORPUSCULAR HGB CONC 33.1 g/dL (31.0-37.0); MEAN PLATELET VOLUME 6.8 fl (7.4-10.4); MONOCYTES % 8.8 % (2.0-8.0); NEUTROPHILS % 83.6 % (40.0-76.0); PLATELET 449 x1000/uL (130-400); RED BLOOD CELL COUNT 3.72 mill/uL (4.2-5.4); RED CELL DISTRIBUTION WIDTH 16.1 % (11.6-14.6); WHITE BLOOD COUNT 14.1 x1000/uL (4.5-11.0)
[2024-03-19 07:12] LABS: CARBON DIOXIDE 29 mEq/L (21-32); CHLORIDE 107 mEq/L (98-107); POTASSIUM 3.8 mEq/L (3.5-5.1); SODIUM 141 mEq/L (136-145)
[2024-03-19 07:13] LABS: CALCIUM 8.9 mg/dL (8.7-10.4)
[2024-03-19 07:18] LABS: CREATININE 0.5 mg/dL (0.6-1.0); GLUCOSE 187 mg/dL (70-105); UREA NITROGEN BLOOD 25 mg/dL (9-23)
[2024-03-19 07:40] LABS: BG BASE EXCESS 6.3 mmol/L (-2.0-3.0); BG CARBOXYHEMOGLOBIN 0.3 % (0.5-1.5); BG DEOXYHEMOGLOBIN 0.8 % (0.0-5.0); BG HCO3 ACT 29.8 mmol/L (21.0-28.0); BG METHEMOGLOBIN 0.2 % (0.5-1.5); BG OXYGEN SATURATION 99.2 % (94.0-98.0); BG OXYHEMOGLOBIN 98.7 % (94.0-98.0); BG PCO2 38.6 mmHg (32.0-45.0); BG PH 7.505 (7.350-7.450); BG PO2 168.3 mmHg (83.0-108.0); BG SAMPLE SITE RIGHT RADIAL; BG TOTAL HEMOGLOBIN 12.6 g/dL (12.0-16.0); BG VENT MODE VENT - AC
[2024-03-19] MEDS: CLONIDINE 0.1MG TABLET PO PRN (16:07)
[2024-03-20] VITALS (41 sets, daily range): BP systolic 104–169; BP diastolic 50–84; PULSE 59–95; RESP 11–17; TEMP 36.6696–37.28076; O2SAT 98–100
[2024-03-20 06:15] LABS: CHLORIDE 105 mEq/L (98-107); POTASSIUM 4.1 mEq/L (3.5-5.1); SODIUM 139 mEq/L (136-145)
[2024-03-20 06:16] LABS: CARBON DIOXIDE 30 mEq/L (21-32)
[2024-03-20 06:17] LABS: CALCIUM 9.2 mg/dL (8.7-10.4)
[2024-03-20 06:18] LABS: HEMATOCRIT. 33.4 % (36.0-48.0); HEMOGLOBIN. 11.1 g/dL (12.0-16.0); MEAN CORPUSCULAR HEMOGLOBIN 29.8 pg (28.0-32.0); MEAN CORPUSCULAR HGB CONC 33.4 g/dL (31.0-37.0); MEAN CORPUSCULAR VOLUME 89.2 fL (81.0-99.0); MEAN PLATELET VOLUME 6.8 fl (7.4-10.4); PLATELET 418 x1000/uL (130-400); RED BLOOD CELL COUNT 3.74 mill/uL (4.2-5.4); RED CELL DISTRIBUTION WIDTH 15.4 % (11.6-14.6); WHITE BLOOD COUNT 11.9 x1000/uL (4.5-11.0)
[2024-03-20 06:21] LABS: CREATININE 0.4 mg/dL (0.6-1.0); GLUCOSE 201 mg/dL (70-105); UREA NITROGEN BLOOD 24 mg/dL (9-23)
[2024-03-20 06:22] LABS: DIFFERENTIAL COMMENT 1
[2024-03-20 09:19] LABS: PLATELET ESTIMATE INCREASED
== END 2024-03-20 17:55 | disposition short-term general hospital (02) | DRG 720 ==
LOC: ER 05:18 → 5WST 09:21 → EDBEDREQSVC 11:51 → EDBEDREQ 12:02 → 7EST 18:56 → CVICU 03-16 06:14
PROVIDERS: ADMIT Internal Medicine; ATTEND Internal Medicine
PROC: 5A09357 Assistance with Respiratory Ventilation, Less than 24 Consecutive Hours, Continuous Positive Airway Pressure (ICD-10-PCS; 2024-03-12)
PROC: 5A1935Z Respiratory Ventilation, Less than 24 Consecutive Hours (ICD-10-PCS; 2024-03-12)
PROC: 0BH17EZ Insertion of Endotracheal Airway into Trachea, Via Natural or Artificial Opening (ICD-10-PCS; 2024-03-12)
PROC: 0BH17EZ Insertion of Endotracheal Airway into Trachea, Via Natural or Artificial Opening (ICD-10-PCS; principal; 2024-03-16)
PROC: 5A1955Z Respiratory Ventilation, Greater than 96 Consecutive Hours (ICD-10-PCS; 2024-03-16)
PROC: 05HA33Z Insertion of Infusion Device into Left Brachial Vein, Percutaneous Approach (ICD-10-PCS; 2024-03-16)
PROC: B54NZZA Ultrasonography of Left Upper Extremity Veins, Guidance (ICD-10-PCS; 2024-03-16)
DX: A41.9 Sepsis, unspecified organism (principal); J96.01 Acute respiratory failure with hypoxia; E87.20 Acidosis, unspecified; J18.9 Pneumonia, unspecified organism; J44.0 Chronic obstructive pulmonary disease with (acute) lower respiratory infection; Z20.822 Contact with and (suspected) exposure to COVID-19; J44.1 Chronic obstructive pulmonary disease with (acute) exacerbation; D64.9 Anemia, unspecified; D75.838 Other thrombocytosis; R65.20 Severe sepsis without septic shock; E11.9 Type 2 diabetes mellitus without complications; E78.5 Hyperlipidemia, unspecified; E87.6 Hypokalemia; E01.0 Iodine-deficiency related diffuse (endemic) goiter; I11.9 Hypertensive heart disease without heart failure; I16.1 Hypertensive emergency; I25.10 Atherosclerotic heart disease of native coronary artery without angina pectoris; I25.2 Old myocardial infarction; Z83.49 Family history of other endocrine, nutritional and metabolic diseases; Z79.82 Long term (current) use of aspirin
CPT/HCPCS: 31500; 36415; 36573; 36600; 70490; 71045; 71250; 76536; 80048; 80053; 82375; 82805; 82962; 83036; 83605; 83880; 84145; 84439; 84443; 84478; 84481; 84484; 85025; 86376; 87070; 87426; 93005; 93970; 94003; 94640; 94660; 99291; C1725; C1893; J0360; J0456; J0696; J1815; J1956; J2470; J2704; J2920; J2930; J3010; J3490; J7060; J7608